=== PATIENT | male | born 1990 | race Caucasian/White ===

== ENCOUNTER 2021-10-15 10:15 | Emergency (ER) | payer OTHER, SELFPAY ==
--- NOTE | ~2021-10-15 | CT_ITS ---
EXAMINATION: CT abdomen pelvis w con DATE: 10/15/2021 12:55 INDICATION: Left flank pain. TECHNIQUE: Computed tomography (CT) of the abdomen and pelvis was performed with 100 mL Omnipaque 350 intravenous contrast. Automated exposure control and iterative reconstruction technique were employe d. The dose-length product was 888.00 mGy-cm. COMPARISON: None. FINDINGS: The visualized portions of the lung bases are clear without pneumonia or pleural effusion. The heart size is normal. No pericardial effusion. The liver, gallbladder, spleen, pancreas, adrenal glands, and right kidney are normal. There is a 5 mm cyst in left kidney. There are no dilated loops of bowel. The appendix is normal. There are no pathologically enlarged lymph nodes. There is a 1 mm s tone in the bladder. There is no free intraperitoneal fluid. There is mild lumbar spondylosis. IMPRESSION: 1. 1 mm stone in the bladder. Reviewed, dictated and finalized at location A. NEERING DESIGN SUPERVISOR
[2021-10-15 10:18] VITALS: BP 152/74; PULSE 80; RESP 18; TEMP 36.3; O2SAT 98
[2021-10-15 11:40] LABS: Add Urine Microscopic? NO; Appearance Urine Clear (Clear); Bilirubin Urine Negative (Negative); Blood Urine Negative (Negative); Color Urine Yellow (Yellow); Glucose Urine UA Negative (Negative); Ketones Urine Negative (Negative); Leukocyte Esterase Ur Negative LEU/UL (Negative); Nitrate Urine Negative (Negative); Protein Urine Negative (Negative); Specific Grav Ur 1.018 (1.001-1.035); Urobilinogen Urine Negative mg/dL (<2.0)
[2021-10-15 11:41] LABS: Basophils Percent Auto 0.3 % (0.2-1.2); Eosinophils Absolute Auto 0.1 K/mm3 (0-0.3); Eosinophils Percent Auto 1.1 % (0-4.4); Hematocrit 50.7 % (42.0-52.0); Hemoglobin 17.7 g/dL (14.0-18.0); Immature Granulocyte Absolute 0.03 K/mm3 (0.00-0.031); Immature Granulocyte Percent A 0.3 % (0-0.5); Lymphocytes Absolute Auto 2.61 K/mm3 (0.9-3.2); Mean Corpuscular HGB Conc 34.9 g/dl (32-36); Mean Corpuscular Hemoglobin 30.2 pg (26-34); Mean Corpuscular Volume 86.4 fl (80-100); Mean Platelet Volume 8.9 fl (7.4-10.4); Monocytes Absolute Auto 0.7 K/mm3 (0.1-0.6); Monocytes Percent Auto 7.7 % (2.6-8.5); Neutrophils Absolute Auto 6.2 K/mm3 (1.3-6.7); Neutrophils Percent Auto 63.6 % (45.5-73.1); Platelet Count Result 264 k/mm3 (150-375); Red Blood Count 5.87 M/mm3 (4.6-6.20); Red Cell Distribution Width 12.3 % (11.5-14.5); White Blood Count 9.7 K/mm3 (4.5-10.0)
[2021-10-15 11:48] LABS: Alanine Aminotransferase 51 U/L (4-50); Alkaline Phosphatase 115 U/L (38-126); Anion Gap 10 mmol/L (8-16); Aspartate Amino Transferase 39 U/L (17-59); Blood Urea Nitrogen 14 mg/dL (9-20); Calcium 9.9 mg/dL (8.4-10.2); Carbon Dioxide 28 mmol/L (22-30); Chloride 101 mmol/L (98-107); Estimated CRCL calculation 107 ml/min; Estimated Glomerular Filt Rate > 60; Glucose 108 mg/dL (65-110); Potassium 3.7 mmol/L (3.4-5.0); Sodium 139 mmol/L (137-145)
--- NOTE | 2021-10-15 12:18 | ED.GENADULT ---
HPI - General Adult General Chief complaint: Back Pain/Injury Stated complaint: flank pain Time Seen by Provider: 10/15/21 11:20 Source: patient Mode of arrival: ambulatory Limitations: no limitations History of Present Illness HPI narrative: Patient presents for evaluation of left flank pain. Pain started about a week ago. Pain is constant, feels like a dull ache , and rated 3/10 currently. No radicular component. He has developed abdominal pain in the past three. Pain is in epigastric region and BUQ. Pain is constant and is primarily present when he wakes up and when he hasn't eaten. Pain decreases about 20 mins after eating. He describes the pain as cramping with associated nausea. He had one episode of vomiting this morning. He has not had the pain he is experiencing in his left flank or abdomen in the past. He rates his abdominal pain anywhere from 3-6/10. He has experienced chills without fever. Over the last week he has noted some changes in his bowel pattern. He is still having a bowel movement daily but states he has had some loose stool and diarrhea. He has not seen any blood or mucous in the stool. He has chronic decreased force of urinary stream related to a distended bladder, although symptoms are unchanged. No hx of abdominal surgeries. No hx of kidney stones. He has a hx of GERD and is taking omeprazole for that. He does take ibuprofen for headaches. He has stopped taking that in the last week due to concerns that it could cause an ulcer. He is not taking any medication for his symptoms. He rarely drinks ETOH. He smokes marijuana a few times per week. Related Data Home Medications Medication Instructions Recorded Confirmed omeprazole 20 mg PO DAILY 10/15/21 Allergies Allergy/AdvReac Type Severity Reaction Status Date / Time No Known Allergies Allergy Verified 10/15/21 11:21 Review of Systems Review of Systems: CONSTITUTIONAL: Denies fever, chills, or sweats. EYES: Denies visual changes, redness, or discharge. ENT: Denies rhinorrhea, congestion, sore throat, or otalgia. CARDIOVASCULAR: Denies chest pain, palpitations, or edema. RESPIRATORY: Denies cough or dyspnea. GASTROINTESTINAL: Reports abdominal pain and nausea. Denies vomiting and diarrhea. GENITOURINARY: Reports chronic decreased force of urinary stream, unchanged. SKIN: Denies rash or itching. MUSCULOSKELETAL: Denies back pain, joint pain, or myalgia. NEUROLOGIC: Denies headache, numbness, dizziness, or weakness. PSYCHIATRIC: Denies anxiety or depression. [facility] Past Medical History Medical History (Updated 10/15/21 @ 13:21 by EVERETT Galloway, ) Bladder distended GERD (gastroesophageal reflux disease) Surgical History Surgical History No pertinent past surgical history Family History Family History Father Hypertension Family history of chronic obstructive pulmonary disease Family history of mental disorder Mother Family history of malignant neoplasm of breast in first degree relative Sibling Patient's brother is in good health Social History Social History Smoking status: Never smoker Second hand tobacco smoke exposure: No Alcohol intake: current Substance use: current Substance use type: marijuana Living arrangements: alone Gender identity (if verbalized by the patient): Male Sexual Orientation (if Verbalized by the Patient): Straight or Heterosexual Spiritual care concerns: No Exam Narrative: GENERAL: Well-appearing, well-nourished, and in no acute distress. HEAD: Normocephalic, atraumatic. EYES: PERRLA and EOMI. ENT: Nares clear, no rhinorrhea or epistaxis. Mucous membranes moist. Oropharynx without tonsillar hypertrophy exudate or other lesions. Bilateral TMs pearly coronado nonbulging NECK: Supple. No
[2021-10-15 12:45] LABS: Lipase 81 U/L (23-300)
== END 2021-10-15 13:53 | disposition home or self-care (01) ==
PROVIDERS: General Practice; Emergency Provider Nurse Practitioner; PCP Internal Medicine
DX: N20.0 Calculus of kidney (principal); N21.0 Calculus in bladder; K21.9 Gastro-esophageal reflux disease without esophagitis
CPT/HCPCS: 36415; 74177; 80053; 81003; 83690; 85025; 99284; Q9967

== ENCOUNTER 2021-10-16 08:10 | Emergency (ER) | payer OTHER, SELFPAY ==
[2021-10-16] VITALS (7 sets, daily range): BP systolic 104–157; BP diastolic 34–136; PULSE 59–108; RESP 8–18; TEMP 36.4; O2SAT 95–100
--- NOTE | ~2021-10-16 | CT_ITS ---
EXAMINATION: CT abdomen pelvis w con DATE: 10/16/2021 10:26 INDICATION: Abdomen pain. Intractable nausea and vomiting. TECHNIQUE: Computed tomography (CT) of the abdomen and pelvis was performed with 100 cc Omnipaque 350 intravenous contrast. The dose-length product was 1099.52 mGy-cm. Automated exposure control and ite rative reconstruction technique were employed. COMPARISON: CT dated 08/15/2022. FINDINGS: Lung bases are unremarkable. Heart size normal. No significant pleural or pericardial effus ion. No significant vascular abnormality. Nonobstructive bowel gas pattern. No lymphadenopathy. The liver, spleen, pancreas, adrenal glands and kidneys are unremarkable. There is vicarious excretio n of contrast into the gallbladder. Normal appendix. No free air or free fluid. Nonspecific air-fluid levels are present in the proximal small bowel which is nondilated. IMPRESSION: 1. Nonspecific air-fluid levels of the proximal small bowel, suspicious for enteritis. No obstruction . Reviewed, dictated and finalized at location A. ANICAL SUPERVISOR IMPRESSION: 1. Nonspecific air-fluid levels of the proximal small bowel, suspicious for ent eritis. No obstruction.
--- NOTE | ~2021-10-16 | XR_ITS ---
XR abdomen/kub 1V 10/16/2021 08:42 INDICATION: Flank pain TECHNIQUE: KUB COMPARISON: CT dated 10/15/20192009 FINDINGS: Bowel gas pattern is normal. There is no evidence of free air, mass, organomegaly, ascites or obstruction. No abnormal calculi are seen. The bones appear intact. There are left pelvic phleb oliths. IMPRESSION: 1: No acute abdominal abnormality identified. Reviewed, dictated and finalized at location A. SEAMER
--- NOTE | 2021-10-16 08:14 | ED.NAVMDI ---
HPI - Nausea/Vomiting/Diarrhea General Chief complaint: Nausea/Vomiting/Diarrhea Stated complaint: N/V, known kidney stone Time Seen by Provider: 10/16/21 08:13 Source: patient Mode of arrival: ambulatory Limitations: no limitations History of Present Illness HPI Narrative: Patient is a 31-year-old male presenting for evaluation of continued abdominal pain, intractable nausea and vomiting. Patient states that he was discharged from this facility yesterday afternoon and felt well until approximately 11:30 PM. Patient states that he then had a another episode of vomiting, and since yesterday evening has had several episodes of vomiting overnight. Patient reports generalized abdominal discomfort throughout the middle of his abdomen and he denies any specific lower suprapubic pain. Denies any dysuria, hesitancy, frequency. No hematuria that he has noticed. He reports subjective fever and chills without rhinorrhea, cough, congestion, shortness of breath, chest pain. Reviewed from yesterday where patient had reassuring laboratory studies, CT without contrast which showed a 1 mm stone present in the bladder. Related Data Home Medications Medication Instructions Recorded Confirmed omeprazole 20 mg PO DAILY 10/15/21 Allergies Allergy/AdvReac Type Severity Reaction Status Date / Time No Known Allergies Allergy Verified 10/15/21 11:21 Review of Systems Review of Systems: CONSTITUTIONAL: Reports fever and chills EYES: Denies visual changes, redness, or discharge. ENT: Denies rhinorrhea, congestion, sore throat, or otalgia. CARDIOVASCULAR: Denies chest pain, palpitations, or edema. RESPIRATORY: Denies cough or dyspnea. GASTROINTESTINAL: Reports diffuse abdominal pain, nausea, vomiting GENITOURINARY: Denies dysuria or hematuria. SKIN: Denies rash or itching. MUSCULOSKELETAL: Denies back pain, joint pain, or myalgia. NEUROLOGIC: Denies headache, numbness, or weakness. [facility] Past Medical History Medical History Bladder distended GERD (gastroesophageal reflux disease) Surgical History Surgical History No pertinent past surgical history Family History Family History Father Hypertension Family history of chronic obstructive pulmonary disease Family history of mental disorder Mother Family history of malignant neoplasm of breast in first degree relative Sibling Patient's brother is in good health Social History Social History Smoking status: Never smoker Second hand tobacco smoke exposure: No Alcohol intake: current Substance use: current Substance use type: marijuana Gender identity (if verbalized by the patient): Male Sexual Orientation (if Verbalized by the Patient): Straight or Heterosexual Spiritual care concerns: No Exam Narrative: GENERAL: Awake, alert, conversant, mildly distressed HEAD: Normocephalic, atraumatic. EYES: PERRLA and EOMI. ENT: Nares clear, no rhinorrhea or epistaxis. Mucous membranes moist. NECK: Supple. CHEST: No respiratory distress, breathing even and non labored HEART: Tachycardic rate, sinus rhythm ABDOMEN:Non distended, mildly tender throughout without guarding, rebound or rigidity EXTREMITIES: Normal range of motion. No edema. SKIN: Warm, dry, no rash. NEURO:No focal deficits. Alert and oriented x3 Course Vital Signs Vital signs: Vital Signs Temperature 36.4 C 10/16/21 08:13 Pulse Rate 108 H 10/16/21 08:13 Respiratory Rate 18 10/16/21 08:13 Blood Pressure 157/136 H 10/16/21 08:13 Pulse Oximetry 100 10/16/21 08:13 Temperature 36.4 C 10/16/21 08:13 Pulse Rate 91 10/16/21 10:01 Respiratory Rate 17 10/16/21 10:01 Blood Pressure 112/75 10/16/21 10:01 Pulse Oximetry 97 10/16/21 11:55 MDM - Nausea/Vomiting/Rosa
[2021-10-16] MEDS: SODIUM CHLORIDE 0.9% IV 2,000 ML 999 ML IV CONT (08:49)
[2021-10-16] MEDS: ONDANSETRON INJ 4 MG/2 ML VIAL IV PUSH (08:49)
[2021-10-16 08:59] LABS: Basophils Percent Auto 0.3 % (0.2-1.2); Eosinophils Percent Auto 0.3 % (0-4.4); Hematocrit 46.3 % (42.0-52.0); Hemoglobin 16.8 g/dL (14.0-18.0); Immature Granulocyte Absolute 0.02 K/mm3 (0.00-0.031); Immature Granulocyte Percent A 0.2 % (0-0.5); Lymphocytes Absolute Auto 2.77 K/mm3 (0.9-3.2); Lymphocytes Percent Auto 25.8 % (18.3-44.2); Mean Corpuscular HGB Conc 36.3 g/dl (32-36); Mean Corpuscular Hemoglobin 30.3 pg (26-34); Mean Corpuscular Volume 83.4 fl (80-100); Mean Platelet Volume 8.9 fl (7.4-10.4); Monocytes Absolute Auto 0.8 K/mm3 (0.1-0.6); Monocytes Percent Auto 7.4 % (2.6-8.5); Neutrophils Absolute Auto 7.1 K/mm3 (1.3-6.7); Platelet Count Result 284 k/mm3 (150-375); Red Blood Count 5.55 M/mm3 (4.6-6.20); Red Cell Distribution Width 12.3 % (11.5-14.5); White Blood Count 10.7 K/mm3 (4.5-10.0)
[2021-10-16] MEDS: MORPHINE SULFATE (*CRX) 4 MG/ML INJ IV PUSH (09:01)
[2021-10-16 09:10] LABS: Alanine Aminotransferase 37 U/L (4-50); Albumin Level 4.8 g/dL (3.5-5.1); Alkaline Phosphatase 121 U/L (38-126); Anion Gap 15 mmol/L (8-16); Aspartate Amino Transferase 32 U/L (17-59); Bilirubin,Total 1.3 mg/dL (0.2-1.3); Blood Urea Nitrogen 14 mg/dL (9-20); Carbon Dioxide 20 mmol/L (22-30); Chloride 100 mmol/L (98-107); Estimated CRCL calculation 128 ml/min; Estimated Glomerular Filt Rate > 60; Glucose 121 mg/dL (65-110); Lipase 67 U/L (23-300); Potassium 3.6 mmol/L (3.4-5.0); Sodium 135 mmol/L (137-145)
[2021-10-16 09:19] LABS: Glucose Point of Care 117 mg/dl (65-105)
[2021-10-16 09:37] LABS: SARS-CoV-2 RNA PCR Negative
[2021-10-16 09:42] LABS: Add Urine Microscopic? YES; Appearance Urine Clear (Clear); Bilirubin Urine Negative (Negative); Blood Urine Negative (Negative); Color Urine Yellow (Yellow); Glucose Urine UA Negative (Negative); Ketones Urine 2+ mg/dL (Negative); Leukocyte Esterase Ur Negative LEU/UL (NEGATIVE); Mucus Urine Rare /lpf; Nitrate Urine Negative (Negative); Protein Urine 1+ mg/dL (Negative); RBC Urine 0-2 /hpf (0-2); Specific Grav Ur 1.025 (1.001-1.035); Squamous Epithelial Cell Urine Rare /hpf (Few); Urobilinogen Urine Negative mg/dL (<2.0); WBC Urine 0-3 /hpf (0-3)
[2021-10-16] MEDS: FAMOTIDINE 20 MG/2 ML VIAL IV PUSH (09:53)
[2021-10-16] MEDS: METOCLOPRAMIDE HCL INJ 10 MG/2 ML VIAL IV PUSH (09:53)
[2021-10-16] MEDS: DICYCLOMINE HCL INJ 20 MG/2 ML VIAL IM (09:55)
[2021-10-16] MEDS: SODIUM CHLORIDE 0.9% IV 1,000 ML 999 ML IV CONT (10:10)
== END 2021-10-16 12:27 | disposition home or self-care (01) ==
PROVIDERS: Emergency Provider Emergency Medicine; PCP Internal Medicine
DX: K52.9 Noninfective gastroenteritis and colitis, unspecified (principal); E86.0 Dehydration; Z20.822 Contact with and (suspected) exposure to COVID-19; K21.9 Gastro-esophageal reflux disease without esophagitis
CPT/HCPCS: 36415; 74018; 74177; 80053; 81001; 82948; 83690; 85025; 96361; 96372; 96374; 96375; 99284; C9803; J0500; J2270; J2405; J2765; J7030; Q9967; U0003; U0005

== ENCOUNTER 2025-06-02 11:30 | Emergency (ER) | payer OTHER, SELFPAY ==
--- NOTE | ~2025-06-02 | XR_ITS ---
XR shoulder RT min 2V 06/02/2025 14:38 Indication: Right shoulder pain Procedure: 4 views right shoulder Comparison: No prior studies for comparison. Findings: No fracture, subluxation or dislocation. No significant soft tissue abnormality. No foreign bodies. Impression: 1: No acute bone or joint abnormality. Reviewed, dictated and finalized at location O. Impression: 1: No acute bone or joint abnormality.
--- NOTE | ~2025-06-02 | XR_ITS ---
EXAMINATION: XR chest 1V 06/02/2025 14:38 INDICATION: Right shoulder and scapular pain PROCEDURE: PA view of the chest COMPARISON: 02/17/2019 FINDINGS: The lungs are clear. The cardiomediastinal silhouette is within normal limits. There are no pleural effusions. There is no pneumothorax suspected. IMPRESSION: 1: NO ACUTE CARDIOPULMONARY DISEASE. Reviewed, dictated and finalized at location O.
[2025-06-02 11:35] VITALS: BP 143/74; PULSE 74; RESP 16; TEMP 36.6; O2SAT 98
--- NOTE | 2025-06-02 13:45 | ED_ITS ---
HPI - General Adult General Chief complaint: Unspecified Stated complaint: shoulder, neck, ear, stomach pain Time Seen by Provider: 06/02/25 13:23 History of Present Illness HPI narrative: This is a 35-year-old male presenting ED with chief shoulder pain. Patient says his shoulder started aching over the weekend. He says he felt he slept on it wrong. Says that it is mostly in the shoulder but is having some pain into his neck and into his arm. It is worse movement. He does not have any fevers, chest pain or difficulty breathing. No traumatic injuries that he is aware of. No overlying skin changes. Related Data Home Medications ?Medication ?Instructions ?Recorded ?Confirmed ?Last Taken ?Type omeprazole 20 mg capsule,delayed 20 mg PO DAILY Unknown History release Allergies Allergy/AdvReac Type Severity Reaction Status Date / Time No Known Allergies Allergy Verified 10/15/21 11:21 [facility] Past Medical History Medical History (Updated 06/02/25 @ 14:52 by Loy Briseno MD) Lipoma of torso Bladder distended GERD (gastroesophageal reflux disease) Surgical History Surgical History No pertinent past surgical history Family History Family History Father Hypertension Family history of chronic obstructive pulmonary disease Family history of mental disorder Mother Family history of malignant neoplasm of breast in first degree relative Sibling Patient's brother is in good health Social History Social History Smoking status: Never smoker Second hand tobacco smoke exposure: No Alcohol intake: current Substance use: current Substance use type: marijuana Living arrangements: alone Gender identity (if verbalized by the patient): Male Sexual Orientation (if Verbalized by the Patient): Straight or Heterosexual Spiritual care concerns: No Exam Narrative: APPEARANCE: No apparent distress. Head: Pimple in the right external auditory canal, tympanic membrane is normal EYES: EOMI, NOSE: Atraumatic NECK: No midline cervical tenderness, no tenderness over over the paracervical region RESPIRATORY: No increased rate of breathing CARDIOVASCULAR: RRR, ABDOMINAL: Non-distended MUSCULOSKELETAl: Focal exam of the right shoulder revealed no areas of tenderness over the trapezius or the scapula, some pain on abduction of the arm and that lateral deltoid. Radial ulnar median nerve function intact. Radial ulnar pulses are strong. Cap refill is less than 2 seconds. Mass Spectrometry Specialist is strong. NEURO: Alert. Moving 4/4 extremities SKIN:: Warm, dry. Normal color PSYCHIATRIC: Normal affect Course Vital Signs Vital signs: Vital Signs Temperature 97.9 F 06/02/25 11:35 Pulse Rate 74 06/02/25 11:35 Respiratory Rate 16 06/02/25 11:35 Blood Pressure 143/74 H 06/02/25 11:35 Pulse Oximetry 98 06/02/25 11:35 Oxygen Delivery Room Air 06/02/25 11:35 Temperature 97.9 F 06/02/25 11:35 Pulse Rate 74 06/02/25 11:35 Respiratory Rate 16 06/02/25 11:35 Blood Pressure 143/74 H 06/02/25 11:35 Pulse Oximetry 98 06/02/25 11:35 Oxygen Delivery Room Air 06/02/25 11:35 Medical Decision Making MDM Narrative Medical decision making narrative: -Course: 35-year-old male presenting with right-sided shoulder pain that is worse with movement. Physical exam is unremarkable. Arm is neurovascularly intact. No overlying skin changes evidence of infection or ischemia. Patient's pain is mild. Patient will be treated with a conservative course of NSAIDs with primary care follow-up. If his pain is to become worse, develops chest pain shortness breath or any new symptoms he should return to the ED for re- evaluation. Patient is agreeable this plan. -DDX includes but is not limited to: Shoulder strain, impingement syndrome, rotator cuff injury, cervical radiculopathy Vital Signs Vital Signs: Vital Signs Temperature 97.9 F 06/02/25 11:35 Pulse Rate 74 06/02/25 11:35 Respiratory Rate 16 06/02/25 11:35 Blood Pressure 143/74 H 06/02/25 11:35 Pulse Oximetry 98 06/02/25 11:35 Oxygen Delivery Room Air 06/02/25 11:35 Temperature 97.9 F 06/02/25 11:35 Pulse Rate 74 06/02/25 11:35 Respiratory Rate 16 06/02/25 11:35 Blood Pressure 143/74 H 06/02/25 11:35 Pulse Oximetry 98 06/02/25 11:35 Oxygen Delivery Room Air 06/02/25 11:35 Discharge Plan Discharge Clinical Impression: Acute shoulder pain Patient Disposition: Home Condition: Stable Instructions: Antibiotic Form, Shoulder Pain (ED) Additional Instructions: Please use Motrin Tylenol as needed for pain. Please follow-up your primary care physician 3-5 days. If you develop severe pain, chest pain shortness of breath or weakness to her arm please return emergency department for re- evaluation immediately. Patient Language: Georgian Prescriptions: No Action omeprazole 20 mg Capsule,Delayed Release(Dr/Ec) 20 mg PO DAILY hydrocodone-acetaminophen 5-325 mg tablet 1 - 2 tablet PO Q6H PRN (Reason: pain) Qty: 15 0RF metoclopramide HCl [Reglan] 10 mg tablet 10 mg PO Q6H PRN (Reason: nausea and vomiting) Qty: 14 0RF dicyclomine 10 mg capsule 10 mg PO TID 5 Days Qty: 15 0RF Follow-up/Referrals: Meir,DO Jez [Primary Care Provider] - 3 Days Referral Note: Shoulder pain
[2025-06-02] MEDS: ACETAMINOPHEN 500 MG TABLET 1000 MG PO (14:41)
[2025-06-02] MEDS: IBUPROFEN 400 MG TABLET 800 MG PO (14:42)
== END 2025-06-02 15:04 | disposition home or self-care (01) ==
PROVIDERS: Emergency Provider Emergency Medicine; PCP Student in an Organized Health Care Education/Training Program
DX: M25.511 Pain in right shoulder (principal); K21.9 Gastro-esophageal reflux disease without esophagitis
CPT/HCPCS: 71045; 73030; 99283; A9270